=== PATIENT | female | born 1945 | race Caucasian/White ===

== ENCOUNTER 2019-10-05 05:52 | Inpatient (IN) | payer MEDICARE, OTHER ==
[~2019-10-05] VITALS: Ht 172.7 cm; Wt 104.5 kg
[2019-10-05] MEDS ORDERED: diltiazem 5mg/ml 5ml inj. IV ONE (06:00)
[2019-10-05] MEDS ORDERED: aspirin 81mg tab.chew PO ONE (06:00)
[2019-10-05] MEDS ORDERED: diltiazem-D5W 125mg/125ml 125 ML IV SCH ×2 (06:05→07:25)
[2019-10-05] MEDS ORDERED: normal saline 1000ml 1,000 ML IV ONE (06:10)
[2019-10-05] MEDS ORDERED: diltiazem-NS 100mg/100ml 100 ML IV SCH (06:11)
[2019-10-05 06:17] LABS: BASOPHILS # (AUTO) 0.1 X10'3 (0-0.2); BASOPHILS % (AUTO) 1.1 % (0-1); EOSINOPHILS # (AUTO) 0.3 X10'3 (0-0.9); EOSINOPHILS % (AUTO) 4.4 % (0-6); HEMOGLOBIN 13.9 g/dl (12.0-16.0); LYMPHOCYTES # (AUTO) 2.3 X10'3 (1.1-4.8); LYMPHOCYTES % (AUTO) 30.6 % (21-51); MEAN CORPUSCULAR HEMOGLOBIN 31.7 PG (27.0-31.0); MEAN CORPUSCULAR VOLUME 93.3 FL (78-98); MEAN PLATELET VOLUME 7.4 FL (7.4-10.4); MONOCYTES # (AUTO) 0.6 X10'3 (0-0.9); NEUTROPHILS # (AUTO) 4.2 X10'3 (1.8-7.7); NEUTROPHILS % (AUTO) 55.9 % (42-75); PLATELET COUNT 209 X10'3 (140-440); RED BLOOD COUNT 4.39 X10'6 (4.20-5.60); RED CELL DISTRIBUTION WIDTH 14.2 % (11.5-14.5); WHITE BLOOD COUNT 7.5 X10'3 (4.5-11.0)
[2019-10-05 06:27] LABS: ALANINE AMINOTRANSFERASE 18 U/L (12-78); ALBUMIN 3.1 G/DL (3.4-5.0); ALKALINE PHOSPHATASE 68 IU/L (46-116); ANION GAP 8 (8-16); ASPARTATE AMINO TRANSFERASE 13 U/L (10-37); BILIRUBIN,TOTAL 0.5 MG/DL (0.1-1.0); BLOOD UREA NITROGEN 28 MG/DL (7-18); BUN/CREATININE RATIO 26.2 (6.6-38.0); CALCIUM 8.5 MG/DL (8.5-10.1); CHLORIDE 108 MMOL/L (99-107); CREATININE 1.07 MG/DL (0.40-0.90); GLUCOSE 109 MG/DL (70-104); POTASSIUM 3.2 MMOL/L (3.5-5.1); SODIUM 143 MMOL/L (135-145); TOTAL CARBON DIOXIDE 26.9 MMOL/L (24-32); TOTAL PROTEIN 6.3 G/DL (6.4-8.2); eGFR 50 ML/MIN
[2019-10-05 06:35] LABS: MAGNESIUM 1.9 MG/DL (1.5-2.4)
[2019-10-05] MEDS ORDERED: potassium Cl 20 mEq SR tablet PO STA (06:37)
[2019-10-05] MEDS ORDERED: heparin 10,000 units/1 ML INJ IV PRN ×2 (06:40→07:25)
[2019-10-05] MEDS ORDERED: heparin 10,000 units/1 ML INJ IV ONE ×2 (06:40→06:45)
[2019-10-05] MEDS: heparin 25,000 UNIT/250ml bag 250 ML IV SCH ×2 (06:58→14:12)
[2019-10-05 07:06] LABS: PARTIAL THROMBOPLASTIN TIME 26 SECONDS (22-32)
--- NOTE | 2019-10-05 07:18 | NUR ---
CARDIZEM GTT INCREASED TO 10ML/HR. HR 112, BP 142/94, PT C/O CP INCRESING 05/11.
[2019-10-05] MEDS ORDERED: heparin 25,000 UNIT/250ml bag 250 ML IV SCH (07:22)
[2019-10-05] MEDS ORDERED: magnesium Cl slow-release 64mg tablet PO PRN (07:25)
[2019-10-05] MEDS ORDERED: potassium CL 10mEq/100ml bag 100 ML IV PRN ×2 (07:25)
[2019-10-05] MEDS ORDERED: magnesium 4gm in 100ml NS 100 ML IV PRN (07:25)
[2019-10-05] MEDS ORDERED: HYDROcodone/acetaminophen 10/325mg tab PO PRN (07:25)
[2019-10-05] MEDS ORDERED: HYDROcodone/acetaminophen 5mg/325mg tablet PO PRN (07:25)
[2019-10-05] MEDS ORDERED: bisacodyl 10mg suppository rectal RC PRN (07:25)
[2019-10-05] MEDS ORDERED: potassium Cl 20 mEq SR tablet PO PRN (07:25)
[2019-10-05] MEDS ORDERED: acetaminophen 325mg tablet PO PRN ×2 (07:25)
[2019-10-05] MEDS ORDERED: morphine 2 MG/ML inj. syringe IV PRN ×2 (07:25)
[2019-10-05] MEDS ORDERED: mag hydrox/Alum hydrox/simeth 30ml oral suspension PO PRN (07:25)
[2019-10-05] MEDS ORDERED: magnesium 2GM in 50ml NS 50 ML IV PRN (07:25)
[2019-10-05] MEDS ORDERED: magnesium hydroxide 30ml (MOM) UD suspension PO PRN (07:25)
[2019-10-05] MEDS ORDERED: ondansetron/PF 4mg/2ml inj IV PRN (07:25)
[2019-10-05] MEDS: normal saline 1000ml 1,000 ML IV SCH ×2 (07:46→17:22)
[2019-10-05] MEDS: K and/or MAG REPLACEMENT MC SCH ×2 (07:48→20:00)
[2019-10-05 08:03] LABS: CHOL/HDL RATIO 3.9 (0.00-4.99); CHOLESTEROL 221 MG/DL (0-200); HDL CHOLESTEROL 57 MG/DL (35-60); LDL CHOLESTEROL 130 MG/DL (50-100); TRIGLYCERIDES 129 MG/DL (20-135)
[2019-10-05] MEDS ORDERED: FURO-150 PO (08:03)
[2019-10-05] MEDS ORDERED: METO-395 PO (08:03)
[2019-10-05] MEDS ORDERED: ANAS1TAB24 PO (08:03)
[2019-10-05] MEDS ORDERED: LORA-269 PO (08:03)
[2019-10-05] MEDS ORDERED: METO50TA16 PO (08:03)
[2019-10-05] MEDS ORDERED: AMLO2.5T5 PO (08:03)
[2019-10-05] MEDS ORDERED: LOSA100T57 PO (08:03)
[2019-10-05] MEDS ORDERED: GABA300C PO (08:03)
[2019-10-05] MEDS ORDERED: ISOS30TA6 PO (08:03)
--- NOTE | 2019-10-05 08:06 | NUR ---
PT OKAYED SPEAKING WITH DAUGHTER OVER THE PHONE ABOUT HER MEDICAL PLAN OF CARE. UPDATED DAUGHTER.
[2019-10-05] MEDS ORDERED: ASPI-611 PO (08:07)
--- NOTE | 2019-10-05 08:32 | NUR ---
MACHINE BANDER AND CELLOPHANER AT BEDSIDE
[2019-10-05 10:11] LABS: PHOSPHORUS 2.5 MG/DL (2.3-4.5)
[2019-10-05 11:00] VITALS: BP 120/67
--- NOTE | 2019-10-05 11:53 | NUR ---
Page Sent PAGER ID: [phone] MESSAGE: [id number] Manjeet. Pt on Cardizem drip. HR sustaining 57-65. HR has small pauses less than 3 seconds causing her HR to drop into 40s and 50s. Renee [phone] (148 character message out of a maximum of 240)
[2019-10-05] MEDS: potassium Cl 20 mEq SR tablet PO PRN ×2 (14:24→19:30)
[2019-10-05] MEDS ORDERED: LORazepam 1 MG tablet PO PRN (14:30)
--- NOTE | 2019-10-05 14:43 | NUR ---
I spoke to Dr. Moser over the phone and he would like me to discontinue patient's cardizem drip and to give her PO meteoprolol now. He would like me to closely monitor her heart rate and BP.
[2019-10-05 15:00] VITALS: BP 143/86
[2019-10-05] MEDS ORDERED: metoprolol tartrate 50mg tablet PO ONE (15:00)
[2019-10-05] MEDS ORDERED: metoprolol succinate 25mg (24-HOUR) SR. Tablet PO ONE (15:00)
[2019-10-05] MEDS: furosemide 20MG tablet PO SCH (15:35)
[2019-10-05] MEDS: isosorbide mononitrate 30mg tab.SR.24H PO SCH (15:36)
[2019-10-05 18:00] VITALS: BP 149/73
--- NOTE | 2019-10-05 18:00 | NUR ---
Problems reprioritized. Patient report given, questions answered & plan of care reviewed with Radha DURAN.
--- NOTE | 2019-10-05 18:38 | NUR ---
Patient in room PCU 3028. I have received report from Renee DURAN and had the opportunity to ask questions and assume patient care.
[2019-10-05] MEDS: metoprolol tartrate 50mg tablet PO SCH (19:30)
[2019-10-05] MEDS: metoprolol succinate 25mg (24-HOUR) SR. Tablet PO SCH (19:33)
[2019-10-05] MEDS ORDERED: metoprolol succinate 25mg (24-HOUR) SR. Tablet PO SCH (20:00)
--- NOTE | 2019-10-05 20:26 | NUR ---
Paged DR Lopez PAGER ID: [phone] MESSAGE: [phone] Kayla Burroughs Admitted for A fib RVR has converted into sinus rhythm. Currently on Heparin drip. Agnieszka DURAN ext [phone]
--- NOTE | 2019-10-05 20:46 | NUR ---
PAGER ID: [phone] MESSAGE: [phone] Kayla Burroughs Patient discussed DNR code status with Dr Moser but orders are for full code. Patient aware of what DNR means. Agnieszka DURAN ext [phone]
[2019-10-05 22:00] VITALS: BP 147/77
[2019-10-06 02:00] VITALS: BP 147/100
[2019-10-06] MEDS: normal saline 1000ml 1,000 ML IV SCH (03:22)
[2019-10-06 03:24] LABS: ALBUMIN 2.8 G/DL (3.4-5.0); ANION GAP 4 (8-16); BLOOD UREA NITROGEN 16 MG/DL (7-18); CALCIUM 8.5 MG/DL (8.5-10.1); CHLORIDE 109 MMOL/L (99-107); CREATININE 0.84 MG/DL (0.40-0.90); GLUCOSE 109 MG/DL (70-104); MAGNESIUM 1.8 MG/DL (1.5-2.4); PHOSPHORUS 2.6 MG/DL (2.3-4.5); POTASSIUM 3.5 MMOL/L (3.5-5.1); SODIUM 142 MMOL/L (135-145); TOTAL CARBON DIOXIDE 28.7 MMOL/L (24-32); eGFR 66 ML/MIN
[2019-10-06 03:27] LABS: BASOPHILS # (AUTO) 0.1 X10'3 (0-0.2); BASOPHILS % (AUTO) 1.1 % (0-1); EOSINOPHILS # (AUTO) 0.4 X10'3 (0-0.9); EOSINOPHILS % (AUTO) 6.2 % (0-6); HEMATOCRIT 36.4 % (35.0-45.0); HEMOGLOBIN 12.5 g/dl (12.0-16.0); LYMPHOCYTES # (AUTO) 1.6 X10'3 (1.1-4.8); LYMPHOCYTES % (AUTO) 26.7 % (21-51); MEAN CORPUSCULAR HEMOGLOBIN 32.4 PG (27.0-31.0); MEAN CORPUSCULAR HGB CONC 34.3 g/dL (33.0-36.5); MEAN CORPUSCULAR VOLUME 94.3 FL (78-98); MEAN PLATELET VOLUME 7.2 FL (7.4-10.4); MONOCYTES # (AUTO) 0.5 X10'3 (0-0.9); MONOCYTES % (AUTO) 8.5 % (2-12); NEUTROPHILS # (AUTO) 3.5 X10'3 (1.8-7.7); NEUTROPHILS % (AUTO) 57.5 % (42-75); PLATELET COUNT 185 X10'3 (140-440); RED BLOOD COUNT 3.86 X10'6 (4.20-5.60); WHITE BLOOD COUNT 6.1 X10'3 (4.5-11.0)
[2019-10-06] MEDS: heparin 25,000 UNIT/250ml bag 250 ML IV SCH (04:43)
--- NOTE | 2019-10-06 06:00 | NUR ---
Patient in room PCU 3028. I have received report from Juliann DURAN and had the opportunity to ask questions and assume patient care.
--- NOTE | 2019-10-06 06:12 | NUR ---
Problems reprioritized. Patient report given, questions answered & plan of care reviewed with Renee DURAN.
[2019-10-06 07:00] VITALS: BP 163/75
[2019-10-06] MEDS: K and/or MAG REPLACEMENT MC SCH (07:21)
[2019-10-06 07:25] VITALS: BP_SYST 180
[2019-10-06] MEDS: furosemide 20MG tablet PO SCH (07:25)
[2019-10-06] MEDS: isosorbide mononitrate 30mg tab.SR.24H PO SCH (07:25)
[2019-10-06] MEDS: metoprolol tartrate 50mg tablet PO SCH (07:25)
[2019-10-06] MEDS: metoprolol succinate 25mg (24-HOUR) SR. Tablet PO SCH (07:26)
[2019-10-06] MEDS ORDERED: anastrozole 1 MG tablet PO SCH (08:00)
[2019-10-06] MEDS ORDERED: aspirin 81mg tablet.DR PO SCH (08:00)
[2019-10-06] MEDS ORDERED: losartan 50mg tablet PO SCH (08:00)
[2019-10-06] MEDS ORDERED: gabapentin 300mg capsule PO SCH (08:00)
[2019-10-06] MEDS ORDERED: METO50TA7 PO (11:37)
--- NOTE | 2019-10-06 13:29 | NUR ---
Patient was discharged to travel to her family reunion in [place]. She was picked up in a private vehicle by her . PIV was removed with cannula intact. Rxs were escripted to [facility] in [place]. Discharge instructions were reviewed with patient and she verbalized understanding. Patient was alert, oriented, and appropriate at time of discharge.
== END 2019-10-06 13:29 | disposition home or self-care (01) | DRG 280 ==
LOC: ER 05:53 → ED HOLD 07:22 → PCU 3S 09:18
PROVIDERS: ADMIT Family Medicine; ATTEND Family Medicine
DX: I48.91 Unspecified atrial fibrillation (principal); I21.A1 Myocardial infarction type 2; N17.0 Acute kidney failure with tubular necrosis; G71.00 Muscular dystrophy, unspecified; N18.9 Chronic kidney disease, unspecified; I13.10 Hypertensive heart and chronic kidney disease without heart failure, with stage 1 through stage 4 chronic kidney disease, or unspecified chronic kidney disease; E78.5 Hyperlipidemia, unspecified; I71.4 Abdominal aortic aneurysm, without rupture; E87.6 Hypokalemia; E11.22 Type 2 diabetes mellitus with diabetic chronic kidney disease; E86.0 Dehydration; F41.9 Anxiety disorder, unspecified; Z66 Do not resuscitate; Z79.899 Other long term (current) drug therapy; Z85.3 Personal history of malignant neoplasm of breast; Z86.79 Personal history of other diseases of the circulatory system; Z95.1 Presence of aortocoronary bypass graft; Z99.3 Dependence on wheelchair
CPT/HCPCS: 36415; 71045; 80048; 80053; 80061; 83735; 83880; 84100; 84443; 84484; 85025; 85610; 85730; 87081; 93005; 93306; 96365; 96375; 96376; 99285; G0378; J1644; J3490; J7030